=== PATIENT | male | born 1995 | race Caucasian/White ===

== ENCOUNTER 2017-12-10 09:17 | Day surgery (SDC) | payer OTHER ==
[~2017-12-10 09:17] MED LIST: ANCEF/STERILE WATER 2 GM/20 ML IV NR
[2017-12-10] MEDS ORDERED: NACL 0.9% 1000 ML 1,000 ML IV SCH (10:14)
--- NOTE | 2017-12-10 10:17 | Anesthesia Consultation ---
Anesthesia Consult and Med Hx Date of service: 12/10/17 - Airway Anesthetic Teeth Evaluation: Good ROM Head & Neck: Adequate Mental/Hyoid Distance: Adequate Mallampati Class: Class I Intubation Access Assessment: Good - Pulmonary Exam CTA: Yes - Cardiac Exam Cardiac Exam: RRR - Pre-Operative Health Status ASA Pre-Surgery Classification: ASA1 Proposed Anesthetic Plan: General - Pulmonary Hx Smoking: No Hx Sleep Apnea: No (VERONICA PRE SCREEN LOW RISK) - Cardiovascular System Hx Hypertension: No - Other Systems Hx Cancer: No
--- NOTE | 2017-12-10 10:18 | Anesthesia Day of Surgery ---
Anesthesia Day of Surgery - Day of Surgery Patient Examined: Yes Patient H&P Reviewed: Yes Patient is NPO: Yes
[2017-12-10] MEDS ORDERED: VERSED IV NR (10:30)
[2017-12-10] MEDS ORDERED: DIPRIVAN 10 MG/ML IV ONE (13:55)
[2017-12-10] MEDS ORDERED: DILAUDID ONE (13:56)
[2017-12-10] MEDS ORDERED: XYLOCAINE MPF 2% ONE (13:56)
[2017-12-10] MEDS ORDERED: SUBLIMAZE ONE (14:20)
[2017-12-10] MEDS ORDERED: ZOFRAN ONE (14:35)
[2017-12-10] MEDS ORDERED: NACL 0.9% IR ONE (14:44)
--- NOTE | 2017-12-10 14:47 | Short Stay Summary ---
Short Stay Documentation Date of service: 12/10/17 - History H&P: obtained from office - Allergies and Medications Current Medications: Allergies No Known Allergies Allergy (Verified 12/07/17 13:24) Home Medications Medication Instructions Recorded Confirmed Last Taken Type No Known Home Medications [No 12/07/17 12/07/17 Unknown History Reported Home Medications] Active Medications Cefazolin Sodium (Ancef/Sterile Water 2 Gm/20 Ml) 2 gm IV PREOP NR Stop: 12/10/17 23:02 Sodium Chloride (Nacl 0.9% 1000 Ml) 1,000 mls @ 75 mls/hr IV DIRECT JAMES Last Admin: 12/10/17 10:34 Dose: 75 mls/hr - Brief post op/procedure progress note Date of procedure: 12/10/17 Pre-op diagnosis: phimosis Post-op diagnosis: same Procedure: circ Anesthesia: GETA Surgeon: REMBERTO CHI Estimated blood loss: minimal Pathology: list (foreskin) Specimen disposition: to lab Condition: stable - Hospital course Hospital course: pt has script - Disposition Condition at discharge: Stable Disposition: DC-01 TO HOME OR SELFCARE Short Stay Discharge Plan Follow up with: SVETLANA YOUNG MD [Primary Care Provider] - 7 Days
[2017-12-10] MEDS ORDERED: ZOFRAN IV PRN (15:21)
[2017-12-10] MEDS ORDERED: TORADOL IV PRN (15:21)
--- NOTE | 2017-12-10 15:21 | Post Anesthesia Evaluation ---
- Post Anesthesia Evaluation Patient Participated: Yes Airway Patent: Yes Stable Respiratory Function: Yes Nausea/Vomiting: No Temp > 96.8F: Yes Pain Manageable: Yes Adequeate Hydration: Yes Anesthesia Complications: No
[2017-12-10] MEDS: DILAUDID IV PRN ×2 (15:30→15:40)
[2017-12-10 16:40] VITALS: BP 105/57
--- NOTE | 2017-12-10 19:37 | Operative Report ---
PREOPERATIVE DIAGNOSIS: Phimosis. POSTOPERATIVE DIAGNOSIS: Phimosis. PROCEDURE: Circumcision. SURGEON: Rivas De MD ANESTHESIA: General. ESTIMATED BLOOD LOSS: Minimal. FLUIDS: Crystalloid. COMPLICATIONS: No complications. INDICATIONS: This 22-year-old gentleman seen in the office significant phimosis, difficulty retracting foreskin. Discussed options with the patient and his mother, they agreed to proceed with surgical intervention. DESCRIPTION OF PROCEDURE: The patient was taken to the operative suite, placed in a supine position. After adequate general anesthesia, was prepped and draped in a sterile fashion. Foreskin was marked at the level of the coronal ridge. Dorsal and ventral slit was made. Foreskin was circumferentially removed and sent for routine pathologic evaluation. Shaft skin was retracted. Adequate hemostasis achieved. Proximal and distal shaft skin was reapproximated and closed with 2-0 chromic in interrupted fashion. Xeroform gauze and Sailaja was placed. The patient tolerated the procedure well and was extubated and taken to recovery room. He has [place]. He is to follow up in the office. JOB# [id number] Yudelka/DAVID
== END 2017-12-10 16:50 | disposition home or self-care (01) ==
LOC: OR 09:17
PROVIDERS: ATTEND Urology
DX: N47.1 Phimosis (principal); I10 Essential (primary) hypertension
CPT/HCPCS: 54150; 88304; J0690; J1170; J1885; J2250; J2405; J2704; J3010; J7030

== ENCOUNTER 2017-12-11 03:44 | Emergency (ER) | payer OTHER ==
[2017-12-11 04:05] VITALS: BP 124/71
[2017-12-11] MEDS ORDERED: MORPHINE IV ONE (07:46)
[2017-12-11] MEDS ORDERED: ZOFRAN IV ONE (07:46)
[2017-12-11] MEDS ORDERED: ZOFRAN ONE (07:47)
[2017-12-11] MEDS ORDERED: MORPHINE ONE (07:48)
--- NOTE | 2017-12-11 07:53 | Emergency Department Report ---
ED Male HPI - General Chief complaint: Abdominal Pain Stated complaint: UNABLE TO URINATE/SP SURG X1DAY (CIRCUMCISION) Time Seen by Provider: 12/11/17 07:39 Source: patient Mode of arrival: Ambulatory Limitations: No Limitations - History of Present Illness Initial comments: Patient is 22 years old male with no significant past medical history, he had circumcision yesterday by Dr. De. Patient stated that since yesterday he having difficulty urinating. He stated that the urine does not come out he had the urge to urinate but nothing coming out. Patient stated that he had general anesthesia for this procedure. He denied any fever, nausea or vomiting. No other complaint. MD Complaint: dysuria - Related Data Home Medications Medication Instructions Recorded Confirmed Last Taken No Known Home Medications [No 12/07/17 12/07/17 Unknown Reported Home Medications] Allergies Allergy/AdvReac Type Severity Reaction Status Date / Time No Known Allergies Allergy Verified 12/07/17 13:24 ED Review of Systems ROS: Stated complaint: UNABLE TO URINATE/SP SURG X1DAY (CIRCUMCISION) Other details as noted in HPI Comment: All other systems reviewed and negative Constitutional: denies: chills, fever Respiratory: denies: cough, shortness of breath, SOB with exertion, SOB at rest Cardiovascular: denies: chest pain, palpitations, dyspnea on exertion Gastrointestinal: denies: abdominal pain, nausea, vomiting Genitourinary: urgency, dysuria. denies: frequency, hematuria, discharge, testicular pain, testicular mass Neurological: denies: headache ED Past Medical Hx - Past Medical History Previous Medical History?: No Hx Hypertension: No Hx HIV: No - Surgical History Past Surgical History?: No - Social History Smoking Status: Never Smoker Substance Use Type: None - Medications Home Medications: Home Medications Medication Instructions Recorded Confirmed Last Taken Type No Known Home Medications [No 12/07/17 12/07/17 Unknown History Reported Home Medications] ED Physical Exam - General Limitations: No Limitations General appearance: alert, in distress (secondary to pain) - Head Head exam: Present: atraumatic, normocephalic - Eye Eye exam: Present: normal appearance, PERRL - ENT ENT exam: Present: normal exam, normal orophraynx, mucous membranes moist - Neck Neck exam: Present: normal inspection, full ROM. Absent: meningismus, lymphadenopathy - Respiratory Respiratory exam: Present: normal lung sounds bilaterally. Absent: respiratory distress, wheezes, rales, rhonchi, chest wall tenderness - Cardiovascular Cardiovascular Exam: Present: regular rate, normal rhythm, normal heart sounds - GI/Abdominal GI/Abdominal exam: Present: soft, normal bowel sounds. Absent: distended, tenderness, guarding, rebound, rigid, organomegaly, mass - exam: Present: circumcision, other (Vaseline gauze partially closing the urethra. No active bleeding.) - Extremities Exam Extremities exam: Present: normal inspection ED Course Vital Signs 12/11/17 12/11/17 03:58 06:45 Temperature 97.7 F Pulse Rate 87 Respiratory 16 16 Rate Blood Pressure 124/71 O2 Sat by Pulse 99 99 Oximetry ED Medical Decision Making - Medical Decision Making Discussed with Dr. De, he stated that patient can go home and advised no dressing needed. Critical care attestation.: If time is entered above; I have spent that time in minutes in the direct care of this critically ill patient, excluding procedure time. ED Disposition Clinical Impression: Urinary retention, Circumcision complication Disposition: - TO HOME OR SELFCARE Is pt being admited?: No Condition: Stable Referrals: ANA ROSA PITTS MD [Primary Care Provider] - 3-5 Days
[2017-12-11] MEDS ORDERED: NACL 0.9% 1000 ML 1,000 ML ONE (10:57)
== END 2017-12-11 13:00 | disposition home or self-care (01) ==
LOC: ED 03:44
DX: T81.9XXA Unspecified complication of procedure, initial encounter (principal); R33.9 Retention of urine, unspecified
CPT/HCPCS: 96374; 96375; 99283; J2270; J2405; J7030